=== PATIENT | male | born 1950 | race Caucasian/White ===

== ENCOUNTER 2016-08-29 04:42 | Inpatient (IN) | payer OTHER ==
[~2016-08-29] VITALS: Ht 180.3 cm; Wt 89.4 kg
[2016-08-29] MEDS ORDERED: AMLODIPINE BESYL5 MG PO (05:14)
[2016-08-29] MEDS ORDERED: FENOFIBRATE145 M1 PO (05:15)
[2016-08-29] MEDS ORDERED: SPIRIVA1 INHALATI IH (05:15)
[2016-08-29] MEDS ORDERED: BISOPROLOL-HCT1 EAC1 PO (05:15)
[2016-08-29] MEDS ORDERED: ASPIRIN81 M2 PO (05:16)
[2016-08-29 05:28] LABS: CHLORIDE 109 mEq/L (99-109); GLUCOSE 129 mg/dL (70-99); POTASSIUM 3.8 mEq/L (3.7-5.4); SODIUM 142 mEq/L (136-147)
[2016-08-29 05:29] LABS: ANION GAP 13 MEQ/L (2-14)
[2016-08-29 05:32] LABS: GFR ESTIMATE (CALCULATED) 43 mL/min/
[2016-08-29 05:33] LABS: UREA NITROGEN (BUN) 17 mg/dL (9-23)
[2016-08-29 05:37] LABS: TROP-I INTERPRETATION NEGATIVE; TROPONIN-I 0.03 ng/mL (0.0-0.30)
[2016-08-29 05:48] LABS: HEMATOCRIT 43.7 % (38.0-50.0); MCH 31.8 PG (29.0-34.0); MCHC 34.8 G/DL (30.0-36.0); MCV 91.4 FL (86-99); MEAN PLAT.VOLUME 10.6 uM^3 (9.0-12.4); PLATELET COUNT 341 K/uL (156-360); RBC DIS.WIDTH-CV 12.6 % (11.8-14.6); RBC DIS.WIDTH-SD 40.9 % (39-53); RED BLOOD COUNT 4.78 M/uL (4.00-5.50)
[2016-08-29 06:01] LABS: D-DIMER ELISA 0.58 mg/L FEU (< 0.57); INTER. NORMALIZED RATIO 1.1; PROTHROMBIN TIME 10.9 (9.2-11.2); PTT 20.8 (25-32)
[2016-08-29] MEDS ORDERED: FISH OIL 1,0001 EA10 PO (08:03)
[2016-08-29 13:24] VITALS: BP 117/71
[2016-08-29 13:57] LABS: INTER. NORMALIZED RATIO 1.1; PROTHROMBIN TIME 11.6 (9.2-11.2)
[2016-08-29 14:14] LABS: TROP-I INTERPRETATION NEGATIVE; TROPONIN-I 0.02 ng/mL (0.0-0.30)
[2016-08-29 14:21] LABS: PTT 36.9 (25-32)
[2016-08-29 15:40] VITALS: BP 117/71
[2016-08-29 20:00] VITALS: BP 112/61
[2016-08-30 01:02] VITALS: BP 108/56
[2016-08-30 04:31] LABS: HEMATOCRIT 42.2 % (38.0-50.0); MCH 31.2 PG (29.0-34.0); MCHC 34.6 G/DL (30.0-36.0); MCV 90.2 FL (86-99); MEAN PLAT.VOLUME 10.7 uM^3 (9.0-12.4); PLATELET COUNT 315 K/uL (156-360); RBC DIS.WIDTH-CV 12.5 % (11.8-14.6); RBC DIS.WIDTH-SD 40.5 % (39-53); RED BLOOD COUNT 4.68 M/uL (4.00-5.50); WHITE BLOOD COUNT 16.5 K/uL (4.1-10.2)
[2016-08-30 04:44] VITALS: BP 112/70
[2016-08-30 05:16] LABS: CHLORIDE 109 mEq/L (99-109); POTASSIUM 3.6 mEq/L (3.7-5.4); SODIUM 139 mEq/L (136-147)
[2016-08-30 05:19] LABS: ANION GAP 10 MEQ/L (2-14)
[2016-08-30 05:21] LABS: GFR ESTIMATE (CALCULATED) 54 mL/min/; GLUCOSE 195 mg/dL (70-99)
[2016-08-30 05:22] LABS: UREA NITROGEN (BUN) 18 mg/dL (9-23)
[2016-08-30 08:24] VITALS: BP 118/73
[2016-08-30 12:34] VITALS: BP 111/57
[2016-08-30 17:11] VITALS: BP 117/69
[2016-08-30 19:44] VITALS: BP 107/58
[2016-08-31] VITALS (8 sets, daily range): BP systolic 93–139; BP diastolic 52–78
[2016-08-31 07:33] LABS: ANION GAP 10 MEQ/L (2-14); CHLORIDE 109 MEQ/L (99-109); GFR ESTIMATE (CALCULATED) 54 mL/min/; GLUCOSE 131 mg/dL (70-99); SAMPLE HEMOLYSIS CHECK 0; SAMPLE ICTERIC CHECK 0; SAMPLE LIPEMIA CHECK 0; SODIUM 139 MEQ/L (136-147); UREA NITROGEN (BUN) 25 mg/dL (9-23)
[2016-09-01 01:49] VITALS: BP 90/58
[2016-09-01 04:29] VITALS: BP 89/52
[2016-09-01 06:35] VITALS: BP 93/59
[2016-09-01 08:45] VITALS: BP 110/57
[2016-09-01] MEDS ORDERED: CEFDINIR300 MG PO ×2 (09:09→11:36)
[2016-09-01] MEDS ORDERED: CARVEDILOL12.5 MG PO ×2 (09:09→11:36)
[2016-09-01] MEDS ORDERED: FUROSEMIDE20 MG PO ×2 (09:10→11:36)
[2016-09-01] MEDS ORDERED: PREDNISONE20 MG PO ×2 (09:11→11:36)
[2016-09-01] MEDS ORDERED: ASPIRIN81 M2 PO (11:36)
[2016-09-01] MEDS ORDERED: FENOFIBRATE145 M1 PO (11:36)
[2016-09-01] MEDS ORDERED: FISH OIL 1,0001 EA10 PO (11:36)
[2016-09-01] MEDS ORDERED: SPIRIVA1 INHALATI IH (11:36)
== END 2016-09-01 13:23 | disposition home or self-care (01) | DRG 286 ==
LOC: EME 04:42 → EDOF 07:50 → 4EAST 07:50 → EDOF 08:10 → 4EAST 13:06
PROVIDERS: Emergency Medicine; Internal Medicine
DX: I42.6 Alcoholic cardiomyopathy (principal); I50.21 Acute systolic (congestive) heart failure; I25.10 Atherosclerotic heart disease of native coronary artery without angina pectoris; I70.0 Atherosclerosis of aorta; I44.7 Left bundle-branch block, unspecified; J44.1 Chronic obstructive pulmonary disease with (acute) exacerbation; I08.3 Combined rheumatic disorders of mitral, aortic and tricuspid valves; N17.9 Acute kidney failure, unspecified; I27.2 Other secondary pulmonary hypertension; F10.20 Alcohol dependence, uncomplicated; E78.2 Mixed hyperlipidemia; I10 Essential (primary) hypertension; G47.33 Obstructive sleep apnea (adult) (pediatric); Z87.891 Personal history of nicotine dependence
CPT/HCPCS: 71020; 71250; 76770; 78582; 80048; 83880; 84443; 84484; 85027; 85379; 85610; 85730; 87040; 87070; 87205; 93005; 93306; 94640; 94640 76; 94799; 99202; 99281; 99285; A9540; A9567; C1769; C1887; C1894; J0696; J1644; J1650; J1940; J2250; J2920; J3010; J7030; J7050; J7512